=== PATIENT | female | born 1950 | race Caucasian/White ===

== ENCOUNTER 2017-09-29 16:22 | Emergency (ER) | payer SELFPAY ==
[2017-09-29 16:23] VITALS: BP 117/68; PULSE 84; RESP 17; TEMP 98.6; O2SAT 98
[2017-09-29 17:27] LABS: BACTERIA, URINE MOD /hpf; BILIRUBIN, URINE NEG (NEG); BLOOD, URINE MOD (NEG); GLUCOSE,URINE NEG (NEG); KETONE, URINE NEG (NEG); MUCUS URINE FEW /lpf (OCC); NITRITE,URINE POS (NEG); PH, URINE 5.5 (5.0-8.5); SQUAMOUS EPITHELIAL CELL URINE 3 /hpf (0-5); URINE COLOR YELLOW (YELLW/STRAW); URINE LEUKOCYTE ESTERASE LARGE (NEG); WHITE BLOOD CELL CLUMPS FEW
[2017-09-29] MEDS ORDERED: PHEN0.4T PO (18:54)
[2017-09-29] MEDS ORDERED: BACT800T5 PO (18:54)
[2017-09-29] MEDS ORDERED: SULFAMETHOXAZOLE-TRIMETHOPRIM DS 800-160 MG TAB PO ONE (19:00)
[2017-09-29] MEDS ORDERED: PHENAZOPYRIDINE HCL 200 MG TAB PO ONE (19:00)
--- NOTE | 2017-09-29 19:01 | PD ---
HPI Chief Complaint: Complaint Time Seen by Provider: 18:23 Travel History International Travel<30 days: No Contact w/Intl Traveler<30days: No Traveled to known affect area: No History of Present Illness HPI 67-year-old female presents to the ED for evaluation 24-hour history of lower abdominal fullness, dysuria, or urinary urgency, increased urinary frequency. She denies fevers, chills, nausea, vomiting, abdominal pain, back pain. Symptoms onset gradually. No alleviating exacerbating factors reported. There treatment attempted at home. PFSH Social History Tobacco Use: No Allergies-Medications (Allergen,Severity, Reaction): Coded Allergies: No Known Allergies (Unverified , 09/29/17) Reported Meds & Prescriptions Reported Meds & Active Scripts Active Pyridium (Phenazopyridine HCl) 100 Mg Tab 100 Mg PO Q8H PRN Bactrim DS (Sulfamethoxazole-Trimethoprim) 800-160 Mg Tab 1 Tab PO BID Review of Systems Except as stated in HPI: all other systems reviewed are Neg Physical Exam Narrative GENERAL: Well-nourished, well-developed female in no acute distress.. SKIN: Focused skin assessment warm/dry. HEAD: Normocephalic. EYES: No scleral icterus. No injection or drainage. NECK: Supple, trachea midline. No JVD or lymphadenopathy. CARDIOVASCULAR: Regular rate and rhythm without murmurs, gallops, or rubs. RESPIRATORY: Breath sounds equal bilaterally. No accessory muscle use. GASTROINTESTINAL: Abdomen soft, non-tender, nondistended. Mild suprapubic tenderness. Active bowel sounds. MUSCULOSKELETAL: No cyanosis, or edema. BACK: Nontender without obvious deformity. No CVA tenderness. Data Data Last Documented VS Vital Signs Date Time Temp Pulse Resp B/P (MAP) Pulse Ox O2 Delivery O2 Flow Rate FiO2 09/29/17 19:00 09/29/17 16:23 98.6 84 17 98 Orders Orders Urinalysis - C+S If Indicated (09/29/17 16:26) Urine Culture (09/29/17 16:10) Sulfamet-Trimeth Ds 800-160 Mg (Bactrim (09/29/17 19:00) Phenazopyridine (Pyridium) (09/29/17 19:00) Ed Discharge Order (09/29/17 19:01) Labs Laboratory Tests Test 09/29/17 16:10 Urine Color YELLOW Urine Turbidity CLOUDY Urine pH 5.5 Urine Specific [place] 1.023 Urine Protein 30 mg/dL Urine Glucose (UA) NEG mg/dL Urine Ketones NEG mg/dL Urine Occult Blood MOD Urine Nitrite POS Urine Bilirubin NEG Urine Urobilinogen LESS THAN 2.0 MG/DL Urine Leukocyte Esterase LARGE Urine RBC 27 /hpf Urine WBC /hpf Urine WBC Clumps FEW Urine Squamous Epithelial Cells 3 /hpf Urine Bacteria MOD /hpf Urine Mucus FEW /lpf Microscopic Urinalysis Comment CULTURE INDICATED MDM Medical Decision Making Medical Screen Exam Complete: Yes Emergency Medical Condition: Yes Differential Diagnosis UTI versus cystitis versus hemorrhagic cystitis versus pyelonephritis versus other Narrative Course 67-year-old female presents to the ED for evaluation 24-hour history of lower abdominal fullness, dysuria, or urinary urgency, increased urinary frequency. She denies fevers, chills, nausea, vomiting, abdominal pain, back pain. Vitals reviewed. Physical exam reveals mild suprapubic tenderness but is otherwise unremarkable. UA nitrite positive, large leukocyte esterase, moderate occult blood, innumerable WBCs, few wbc clumps. Culture pending. Patient's prescribed Pyridium and Bactrim DS. First doses administered in the ED. She is instructed to take all the antibiotics as prescribed, return for worsening symptoms, otherwise follow up with her primary care provider. Patient indicated understanding of instructions and is agreeable to the care plan. The patient is stable and discharged home. Diagnosis Primary Impression: Hemorrhagic cystitis Referrals: Primary Care Physician Patient Instructions: General Instructions, Urinary Tract Infection in Women ( ED) Additional Instructions: Rest, hydrate. Take Pyridium every 8 hours as prescribed, as needed for urinary urgency. Pyridium turns her urine orange. This is an expected side effect. Take Bactrim as prescribed until every pill is gone. Follow-up with primary care provider. Return to the ED for worsening symptoms or any urgent or emergent medical condition. Med/Other Pt SpecificInfo: Prescription(s) given Scripts Phenazopyridine (Pyridium) 100 Mg Tab 100 MG PO Q8H Y for DYSURIA, #6 TAB 0 Refills Prov: Jeff Carpenter MD 09/29/17 Sulfamethoxazole-Trimethoprim (Bactrim DS) 800-160 Mg Tab 1 TAB PO BID for Infection, #6 TAB 0 Refills Prov: Jeff Carpenter MD 09/29/17 Disposition: 01 DISCHARGE HOME Condition: Stable Bianka Gan Sep 29, 2017 19:01
== END 2017-09-29 19:16 | disposition home or self-care (01) ==
LOC: NEPK 16:22
DX: N30.91 Cystitis, unspecified with hematuria (principal); B96.20 Unspecified Escherichia coli [E. coli] as the cause of diseases classified elsewhere
CPT/HCPCS: 81001; 87077; 87086; 87186; 99283